=== PATIENT | male | born 1990 | race Caucasian/White ===

== ENCOUNTER 2024-05-22 10:10 | Emergency (ER) | payer BC ==
[2024-05-22 10:52] LABS: Anion Gap 14 mmol/L (10-20); BUN (Urea Nitrogen) 15 mg/dL (8.9-20.6); Calc. Creatinine Clearance 0 mL/min (70-130); Calcium 8.6 mg/dL (7.8-10.44); Carbon Dioxide 23 mmol/L (22-29); Chloride 105 mmol/L (98-107); Estimated GFR 121; Glucose 248 mg/dL (70-105); Potassium 3.7 mmol/L (3.5-5.1); Sodium 138 mmol/L (136-145)
== END 2024-05-22 11:04 | disposition home or self-care (01) ==
LOC: MADERS 10:10
DX: E11.65 Type 2 diabetes mellitus with hyperglycemia (principal); F17.220 Nicotine dependence, chewing tobacco, uncomplicated; Z79.4 Long term (current) use of insulin
CPT/HCPCS: 36416; 80048; 96360; 36415-59